=== PATIENT | female | born 1930 | race Caucasian/White ===

== ENCOUNTER 2017-09-30 08:38 | Inpatient (IN) | payer MEDICARE ==
[2017-09-30] VITALS (8 sets, daily range): BP systolic 92–124; BP diastolic 53–82
[~2017-09-30] VITALS: Ht 157.5 cm; Wt 83.5 kg
[2017-09-30 09:10] LABS: BASO % 0.1 % (0.0-1.0); EOS # 0.1 10*3/uL (0.0-0.4); EOS % 0.7 % (1.0-4.0); HEMATOCRIT 36.4 % (37.0-47.0); HEMOGLOBIN 11.5 g/dl (12.0-16.0); LYMPH # 1.5 10*3/uL (1.3-4.4); LYMPH % 9.8 % (27.0-41.0); MEAN CELL VOLUME 94.8 fl (81.0-99.0); MEAN CORPUSCULAR HGB 29.9 pg (27.0-31.0); MEAN CORPUSCULAR HGB CONC 31.6 g/dl (33.0-37.0); MEAN PLATELET VOLUME 9.3 fl (9.6-12.3); MONO # 0.9 10*3/uL (0.1-1.0); MONO % 5.7 % (3.0-9.0); NEUT # 12.3 10*3/uL (2.3-7.9); NEUT % 83.2 % (47.0-73.0); PLATELET COUNT AUTOMATED 196 10*3/uL (130-400); RED BLOOD COUNT 3.84 10*6/uL (4.10-5.10); RED CELL DISTRI WIDTH 15.1 % (0-14.5); WHITE BLOOD COUNT 14.8 10*3/uL (4.8-10.8)
[2017-09-30] MEDS ORDERED: AMIODARONE HCL200 MG PO (09:16)
[2017-09-30] MEDS ORDERED: ELIQUIS2.5 M1 PO (09:16)
[2017-09-30] MEDS ORDERED: BUSPIRONE HCL7.5 MG PO (09:17)
[2017-09-30] MEDS ORDERED: SOF-LAX100 MG PO (09:17)
[2017-09-30] MEDS ORDERED: NORCO 5-325 TA1 EACH PO (09:18)
[2017-09-30 09:19] LABS: ACT PARTIAL THROMBO TIME 24.8 SECONDS (20.8-31.5); INTERNATIONAL NORM RATIO 1.1 (2.0-3.5)
[2017-09-30] MEDS ORDERED: MIRALAX POWDER255 G1 PO (09:20)
[2017-09-30] MEDS ORDERED: HUMALOG100 UNIT/2 SQ (09:20)
[2017-09-30] MEDS ORDERED: LEVOXYL75 MCG PO (09:20)
[2017-09-30] MEDS ORDERED: POTASSIUM CHLO20 ME3 PO (09:21)
[2017-09-30] MEDS ORDERED: [UNRECOGNIZED DRUG - CODE] PO (09:21)
[2017-09-30] MEDS ORDERED: ZOFRAN4 MG PO (09:22)
[2017-09-30] MEDS ORDERED: SODIUM BICARBO650 MG PO (09:22)
[2017-09-30 09:28] LABS: ALBUMIN 2.5 gm/dl (3.1-4.5); CREATININE 1.09 mg/dL (0.55-1.02); POTASSIUM 3.2 mmol/L (3.5-5.1); TOTAL PROTEIN 6.1 gm/dL (6.4-8.2)
[2017-09-30 09:33] LABS: TROPONIN I 0.631 ng/ml (<0.045)
[2017-09-30 09:35] LABS: THYROID STIM HORMONE (HS) 4.57 uIU/ml (0.358-4.75)
[2017-09-30 17:47] LABS: BILIRUBIN NEGATIVE (NEGATIVE); BLOOD TRACE-INTACT (NEGATIVE); CLARITY CLEAR (CLEAR); COLOR YELLOW (YELLOW); GLUCOSE NEGATIVE (NEGATIVE); KETONE NEGATIVE (NEGATIVE); LEUKO ESTERASE NEGATIVE (NEGATIVE); NITRITE NEGATIVE (NEGATIVE); PH 6.5 (5.0-9.0); SPECIFIC GRAVITY <= 1.005 (1.005-1.030); UROBILINOGEN 0.2 E.U./dl (0.2-1.0)
[2017-09-30 17:56] LABS: BACTERIA TRACE; EPITHELIAL CELLS 0-2; WBC 0-2 wbc/hpf (0-5)
[2017-10-01] VITALS (9 sets, daily range): BP systolic 58–144; BP diastolic 0–86
[2017-10-01 06:15] LABS: BASO % 0.2 % (0.0-1.0); EOS # 0.1 10*3/uL (0.0-0.4); EOS % 1.1 % (1.0-4.0); HEMATOCRIT 21.7 % (37.0-47.0); HEMOGLOBIN 6.7 g/dl (12.0-16.0); LYMPH # 1.6 10*3/uL (1.3-4.4); LYMPH % 14.6 % (27.0-41.0); MEAN CELL VOLUME 96.4 fl (81.0-99.0); MEAN CORPUSCULAR HGB 29.8 pg (27.0-31.0); MEAN CORPUSCULAR HGB CONC 30.9 g/dl (33.0-37.0); MEAN PLATELET VOLUME 9.9 fl (9.6-12.3); MONO # 0.6 10*3/uL (0.1-1.0); MONO % 5.8 % (3.0-9.0); NEUT # 8.6 10*3/uL (2.3-7.9); NEUT % 77.6 % (47.0-73.0); PLATELET COUNT AUTOMATED 155 10*3/uL (130-400); RED BLOOD COUNT 2.25 10*6/uL (4.10-5.10); RED CELL DISTRI WIDTH 15.3 % (0-14.5)
[2017-10-01 06:23] LABS: ACT PARTIAL THROMBO TIME 32.6 SECONDS (20.8-31.5); INTERNATIONAL NORM RATIO 1.3 (2.0-3.5)
[2017-10-01 06:26] LABS: ALBUMIN 1.7 gm/dl (3.1-4.5); CREATININE 1.11 mg/dL (0.55-1.02); FREE T4 1.1 ng/dl (0.76-1.46); PHOSPHOROUS 2.9 mg/dL (2.5-4.9); POTASSIUM 3.9 mmol/L (3.5-5.1); TOTAL PROTEIN 4.5 gm/dL (6.4-8.2)
[2017-10-01 06:32] LABS: THYROID STIM HORMONE (HS) 4.1 uIU/ml (0.358-4.75)
[2017-10-01 07:36] LABS: VITAMIN D, 25-HYDROXY 22.1 ng/mL (30-100)
[2017-10-01 08:41] LABS: ABG BASE EXCESS 9.5 mmol/L (-2.0-2.0); ABG HCO3 32.4 mmol/l (22-26); ARTERIAL BLOOD GAS PCO2 34.7 mmHg (35-45); ARTERIAL BLOOD GAS PH 7.575 (7.35-7.45)
[2017-10-01 08:43] LABS: ABG O2 SATURATION 99.9 % (95-97)
[2017-10-01 08:55] LABS: HEMATOCRIT 23.5 % (37.0-47.0); HEMOGLOBIN 7.5 g/dl (12.0-16.0)
[2017-10-01 10:16] LABS: ABG BASE EXCESS 4.8 mmol/L (-2.0-2.0); ABG HCO3 28.9 mmol/l (22-26); ABG O2 SATURATION 94.4 % (95-97); ARTERIAL BLOOD GAS PCO2 41.7 mmHg (35-45); ARTERIAL BLOOD GAS PH 7.453 (7.35-7.45)
== END 2017-10-01 11:05 | disposition short-term general hospital (02) | DRG 280 ==
LOC: ED 08:38 → ICCU 09:04 → EDHOLD 09:04 → ICCU 09:19
PROVIDERS: Emergency Medicine; Family Medicine; Family Medicine Adult Medicine; Internal Medicine
PROC: 30233N1 Transfusion of Nonautologous Red Blood Cells into Peripheral Vein, Percutaneous Approach (ICD-10-PCS; principal; 2017-10-01)
PROC: 02HV33Z Insertion of Infusion Device into Superior Vena Cava, Percutaneous Approach (ICD-10-PCS; principal; 2017-10-01)
PROC: 0BH17EZ Insertion of Endotracheal Airway into Trachea, Via Natural or Artificial Opening (ICD-10-PCS; principal; 2017-10-01)
PROC: B548ZZA Ultrasonography of Superior Vena Cava, Guidance (ICD-10-PCS; principal; 2017-10-01)
PROC: 30233R1 Transfusion of Nonautologous Platelets into Peripheral Vein, Percutaneous Approach (ICD-10-PCS; principal; 2017-10-01)
DX: I21.A1 Myocardial infarction type 2 (principal); E43 Unspecified severe protein-calorie malnutrition; R65.11 Systemic inflammatory response syndrome (SIRS) of non-infectious origin with acute organ dysfunction; J96.01 Acute respiratory failure with hypoxia; I95.9 Hypotension, unspecified; I13.0 Hypertensive heart and chronic kidney disease with heart failure and stage 1 through stage 4 chronic kidney disease, or unspecified chronic kidney disease; I50.9 Heart failure, unspecified; I48.91 Unspecified atrial fibrillation; D64.9 Anemia, unspecified; E83.42 Hypomagnesemia; I47.1 Supraventricular tachycardia; K62.5 Hemorrhage of anus and rectum; I35.0 Nonrheumatic aortic (valve) stenosis; N18.3 Chronic kidney disease, stage 3 (moderate); E87.6 Hypokalemia; E78.2 Mixed hyperlipidemia; E03.9 Hypothyroidism, unspecified; G25.0 Essential tremor; Z80.41 Family history of malignant neoplasm of ovary; Z88.2 Allergy status to sulfonamides; Z88.8 Allergy status to other drugs, medicaments and biological substances; Z79.4 Long term (current) use of insulin; Z79.899 Other long term (current) drug therapy; Z79.1 Long term (current) use of non-steroidal anti-inflammatories (NSAID); Z68.33 Body mass index [BMI] 33.0-33.9, adult; S42.291D Other displaced fracture of upper end of right humerus, subsequent encounter for fracture with routine healing